=== PATIENT | male | born 1995 | race Hispanic/Latino ===

== ENCOUNTER 2017-07-02 08:14 | Outpatient (CLI) | payer OTHER ==
--- NOTE | 2017-07-02 12:19 | MRI ---
BRAIN MRI WITH AND WITHOUT CONTRAST: Date: 07/02/17 HISTORY: Hydrocephalus. COMPARISON: None. TECHNIQUE: Brain MRI is performed with and without intravenous Gadolinium administration. Multisequential, multi planar imaging is performed. FINDINGS: There is blooming artifact secondary to bifrontal MAKE[employer] EDITOR shunt catheters. No parenchymal mass, mass effect, or midline shift. The ventricular system is greater than expected f or patient's age. There is evidence of a cavum septum pellucidum and cavum vergae. The overall brain volume is less than expected for patient's age. Cortical joel-white matter differen tiation is preserved. Ventricles and sulci are patent and symmetric. Central arterial flow-voids are maintained. Absent restricted diffusion. Note is made of a antonio cisterna magna. No pathologic enhancement of the brain parenchyma. Adequate aeration of the sinuses and mastoid air cells. IMPRESSION: 1. Bifrontal MAKE[employer] EDITOR shunt catheters. 2. Hydrocephalus. 3. No pathologic enhancement of the brain parenchyma. POS: [facility]
--- NOTE | 2017-07-02 12:23 | MRI ---
MRI CERVICAL SPINE WITH AND WITHOUT CONTRAST: Date: 07/02/17 HISTORY: Neurofibromatosis Type I. Hydrocephalus. COMPARISON: None. TECHNIQUE: Cervical spine MRI is performed with and without intravenous Gadolinium administration. Multisequenti al, multiplanar imaging is performed. FINDINGS: There is appropriate T1 marrow signal intensity of the cervical vertebra. Cervical spine vertebral maury dy height is maintained. There is no fracture. No significant STIR hyperintensity to suggest edema or ligamentous injury. Visualized brain parenchyma, cervicomedullary junction, cervical cord, and the upper thoracic cord cordova ve a normal size and signal intensity. C2-C3: No significant disc osteophyte complex. No significant central canal stenosis or foraminal narrowing. C3-C4: No significant disc osteophyte complex. No significant central canal stenosis. Foramina are patent. C4-C5: No significant disc osteophyte complex. No significant central canal stenosis. Foramina are patent. C5-C6: No significant disc osteophyte complex. No significant central canal stenosis. Foramina are pa tent. C7-T1: Mild loss of disc space height. Central disc osteophyte complex that abuts the thecal sac and minimal ly deforms the ventral cord. No T2 hyperintensity of the cord. Overall, mild central canal stenosis. Neural foramina are patent. On the postcontrast images, no abnormal enhancement within the thecal sac, including the visualized c ord. IMPRESSION: Unremarkable pre and postcontrast MRI cervical spine. POS: [facility]
--- NOTE | 2017-07-02 12:26 | MRI ---
MRI THORACIC SPINE WITH AND WITHOUT CONTRAST: Date: 07/02/17 HISTORY: Neurofibromatosis Type I. COMPARISON: None. TECHNIQUE: Thoracic spine MRI is performed with and without intravenous Gadolinium administration. Multisequenti al, multiplanar imaging is performed. FINDINGS: There is appropriate T1 marrow signal intensity of the thoracic vertebra. Thoracic spine vertebral maury dy height is maintained. No fracture. No significant STIR hyperintensity to suggest vertebral body ed rocco or ligamentous injury. Visualized mediastinum, lung parenchyma, and upper solid organs are unremarkable. Conus medullaris terminates beyond the T12 level. The thoracic cord has an overall normal size and si gnal intensity. No cord expansion. No T2 hyperintensity of the cord. No abnormal enhancement. The central spinal canal and neural foramina are patent. IMPRESSION: Unremarkable pre and postcontrast MRI thoracic spine. POS: [facility]
--- NOTE | 2017-07-02 13:10 | MRI ---
MRI LUMBAR SPINE WITH AND WITHOUT CONTRAST: Date: 07/02/17 HISTORY: Neurofibromatosis Type I. Hydrocephalus. COMPARISON: None. TECHNIQUE: MRI lumbar spine is performed with and without intravenous Gadolinium administration. Multisequential , multiplanar imaging is performed. FINDINGS: Appropriate T1 marrow signal intensity of the lumbar vertebra. Lumbar spine vertebral body height is maintained. No fracture. No significant STIR hyperintensity to suggest edema or ligamentous injury. Conus medullaris terminates at the mid L1 level. There is appropriate signal intensity of the visualized solid organs and psoas muscles. On the postcontrast images, no abnormal enhancement of the vertebral bodies. No abnormal enhancement within the thecal sac. T12-L1: No significant central canal stenosis or foraminal narrowing. L1-L2: No significant central canal stenosis or foraminal narrowing. L2-3: No significant central canal stenosis or foraminal narrowing. L3-L4: No significant central canal stenosis or foraminal narrowing. L4-L5: No significant central canal stenosis or foraminal narrowing. L5-S1: Minimal disc bulge. No significant central canal stenosis. Neural foramina are patent bilaterally. IMPRESSION: Minimal disc disease at L5-S1. POS: [facility]
--- NOTE | 2017-07-02 14:39 | RAD ---
LUMBAR SPINE 4 VIEWS: (WITH EXTENSION AND FLEXION) Date: 07/02/17 HISTORY: Back pain. FINDINGS/IMPRESSION: No fracture, subluxation, or bony destruction is seen. No change in alignment is noted on flexion or extension. POS: [facility]
--- NOTE | 2017-07-02 14:39 | RAD ---
SHUNT STUDY FIVE VIEWS: History: Evaluation of shunt. FINDINGS: A left sided ventriculoperitoneal shunt tube is seen. The tube extends over the left side of the ches t and crosses midline. The tip of the tube is in the right side of the pelvis. Heart size and mediastinum are within normal limits. The lungs are clear of infiltrates. Bowel gas pattern is nonobstructed. IMPRESSION: Left sided ventriculoperitoneal shunt tube. The tip of the tube is in the right side of the pelvis. POS: [facility]
--- NOTE | 2017-07-02 14:40 | RAD ---
CERVICAL SPINE FOUR VIEWS: History: Neck pain. FINDINGS/IMPRESSION: No fracture or subluxation is seen. There is minimal retrolisthesis of C3 over C4 and C4 over C5 vert ebral bodies on extension. POS: [facility]
[2017-07-02] MEDS ORDERED: Gadobenate Dimeglumine 529 MG/1 ML (20ML VIAL) ONE ×4 (16:59→17:00)
== END 2017-07-02 08:15 | disposition home or self-care (01) ==
LOC: MRI 08:14
PROVIDERS: ATTEND Surgery
DX: G91.9 Hydrocephalus, unspecified (principal); Q85.01 Neurofibromatosis, type 1; M54.2 Cervicalgia; M54.5 Low back pain; M43.12 Spondylolisthesis, cervical region; M51.37 Other intervertebral disc degeneration, lumbosacral region
CPT/HCPCS: 70553; 72050; 72120; 72156; 72157; 72158; 75809; A9579